=== PATIENT | male | born 1995 | race Hispanic/Latino ===

== ENCOUNTER 2020-06-06 23:17 | Emergency (ER) | payer OTHER ==
--- NOTE | 2020-06-06 23:55 | CT ---
CT head noncontrast HISTORY: Fall. Head injury. FINDINGS: There is no evidence of acute intracranial hemorrhage or infarct. The ventricles appear nor mal in size, shape and position. There is no mass effect or shift of midline structures. Visualized paranasal sinuses remain well aerated. IMPRESSION : No abnormalities are demonstrated.
--- NOTE | 2020-06-06 23:58 | CT ---
CT face noncontrast HISTORY: Injury. FINDINGS: The mandible, globes, and zygomatic arches are intact. No acute fracture or dislocation. Minimal mucosal thickening is apparent within the right maxillary sinus. No air-fluid levels. IMPRESSION : No traumatic injury is demonstrated.
== END 2020-06-07 00:05 | disposition home or self-care (01) ==
LOC: ERS 23:17
DX: S06.9X9A Unspecified intracranial injury with loss of consciousness of unspecified duration, initial encounter (principal); S00.83XA Contusion of other part of head, initial encounter; F31.9 Bipolar disorder, unspecified; F17.210 Nicotine dependence, cigarettes, uncomplicated; Z79.899 Other long term (current) drug therapy; Y04.8XXA Assault by other bodily force, initial encounter
CPT/HCPCS: 70450; 70486

== ENCOUNTER 2020-06-20 19:30 | Emergency (ER) | payer OTHER ==
--- NOTE | 2020-06-20 20:08 | RAD ---
EXAM: Single view of the chest HISTORY: Shortness of breath and chest palpitations COMPARISON: None FINDINGS: Single view of the chest shows a normal sized cardiomediastinal silhouette. There is no isabel dence of consolidation, mass, or pleural effusion. The bones are unremarkable IMPRESSION: No evidence of acute cardiopulmonary disease
== END 2020-06-20 20:36 | disposition home or self-care (01) ==
LOC: ERS 19:30
DX: R00.2 Palpitations (principal); F17.210 Nicotine dependence, cigarettes, uncomplicated; F31.9 Bipolar disorder, unspecified; Z79.899 Other long term (current) drug therapy
CPT/HCPCS: 71045; 93005